=== PATIENT | female | born 1970 | race African-American/Black ===

== ENCOUNTER 2019-10-13 02:45 | Emergency (ER) | payer OTHER ==
[~2019-10-13] VITALS: Ht 165.1 cm; Wt 72.6 kg
[2019-10-13] MEDS ORDERED: LIPITOR10 MG PO (03:02)
[2019-10-13] MEDS ORDERED: LANTUS SUBQ (03:02)
[2019-10-13] MEDS ORDERED: MULTIVITAMINS1 EAC7 PO (03:03)
[2019-10-13] MEDS ORDERED: DIFLUCAN (03:03)
[2019-10-13 03:24] LABS: ABSOLUTE EOSINOPHILS 0.2 thou/uL (0.0-0.7); ABSOLUTE LYMPHOCYTES 1.9 thou/uL (0.8-5.3); ABSOLUTE MONOCYTES 0.4 thou/uL (0.0-1.2); ABSOLUTE NEUTROPHILS 3.1 thou/uL (1.6-8.1); BASOPHILS 0.6 %; EOSINOPHILS 3.5 %; HEMATOCRIT 40.2 % (37.0-47.0); HEMOGLOBIN 13.7 gm/dL (12.0-15.0); LYMPHOCYTES 33.5 %; MCH 29.9 pg (26.0-34.0); MONOCYTES 7.4 %; MPV 9.7 fl. (7.2-11.1); NUCLEATED RBCS 0 /100WBC; PLATELET COUNT* 245 thou/uL (150-400); RBC 4.56 mil/uL (4.20-5.00); RDW-CV 12.8 % (10.5-14.5); WBC 5.7 thou/uL (4.0-11.0)
[2019-10-13 03:31] LABS: CALCIUM 8.2 mg/dL (8.5-10.1); CREATININE 0.5 mg/dL (0.6-1.3); POTASSIUM 3.8 mmol/L (3.5-5.1)
[2019-10-13 03:36] LABS: INR 0.9; PROTIME 9.7 Seconds (9.20-11.50)
[2019-10-13] MEDS ORDERED: HYDROCODON-ACE1 EAC7 PO (04:05)
[2019-10-13] MEDS ORDERED: MELOXICAM15 MG PO (04:05)
[2019-10-13 04:31] VITALS: BP 172/91
== END 2019-10-13 04:31 | disposition home or self-care (01) ==
LOC: M.ERS 02:45
PROVIDERS: Personal Emergency Response Attendant
DX: M25.562 Pain in left knee (principal); E11.9 Type 2 diabetes mellitus without complications; K50.90 Crohn's disease, unspecified, without complications; Z90.49 Acquired absence of other specified parts of digestive tract; Z90.710 Acquired absence of both cervix and uterus; Z88.8 Allergy status to other drugs, medicaments and biological substances